=== PATIENT | female | born 1955 | race Caucasian/White ===

== ENCOUNTER → 2018-09-06 | Outpatient (CLI) | payer OTHER | LOC: RAD 16:31 | DX: R06.2 Wheezing (principal); R05 Cough ==

== ENCOUNTER 2018-09-12 10:42 | Emergency (ER) | payer OTHER ==
[~2018-09-12] VITALS: Ht 152.4 cm; Wt 81.2 kg
[2018-09-12 11:22] LABS: ABSOLUTE NEUTROPHILS 5.4 thou/uL (1.4-8.2); BASOPHILS 0.7 % (0.0-2.0); EOSINOPHILS 6.5 % (0.0-3.0); HEMATOCRIT 41.8 % (37.0-47.0); HEMOGLOBIN 14.5 gm/dL (12.0-15.0); LYMPHOCYTES 21.1 % (24.0-44.0); MCH 32.8 pg (26.0-34.0); MCHC 34.8 g/dL (28.0-37.0); MCV 94.2 fL (80.0-100.0); MONOCYTES 6.5 % (1.0-8.0); PLATELET COUNT 263 thou/uL (150-400); POLYS 65.2 % (36.0-66.0); RBC 4.43 mil/uL (4.20-5.00); RDW 13.7 % (10.5-14.5); WBC 8.3 thou/uL (4.0-11.0)
[2018-09-12 11:27] LABS: CALCIUM 10.1 mg/dL (8.5-10.1); POTASSIUM 3.8 mmol/L (3.5-5.1)
[2018-09-12] MEDS ORDERED: LIDOCAINE1 EACH TRANSDERM (11:53)
[2018-09-12] MEDS ORDERED: TESSALON PERLE100 MG PO (11:53)
[2018-09-12 11:57] VITALS: BP 123/64
== END 2018-09-12 12:37 | disposition home or self-care (01) ==
LOC: ER 10:42
PROVIDERS: Physician Assistant
DX: R07.89 Other chest pain (principal); R05 Cough; R09.81 Nasal congestion